=== PATIENT | female | born 1995 | race Caucasian/White ===

== ENCOUNTER 2017-09-04 22:17 | Emergency (ER) | payer OTHER ==
[2017-09-04 22:26] VITALS: TEMP 98.4
[2017-09-04] MEDS ORDERED: PROMETHAZINE HCL 25 MG TAB PO ONE (22:54)
[2017-09-04] MEDS ORDERED: CEPHALEXIN 500MG PREPACK#4 BTL TAKEHOME ONE (22:55)
[2017-09-04] MEDS ORDERED: SULFAMETHOX/TMP 800/160 MG 1 TAB PO ONE (22:55)
[2017-09-04] MEDS ORDERED: CEPHALEXIN 500 MG CAP PO ONE (22:55)
[2017-09-04] MEDS ORDERED: SULFAMET/TMP DS PREPACK#2 BTL TAKEHOME ONE (22:55)
--- NOTE | 2017-09-04 23:01 | EDPHY ---
H & P Stated Complaint: nauea lethargic aches ? w/d from suboxone Time Seen by Provider: 09/04/17 22:29 HPI/ROS: HPI The patient presents with generalized malaise, nausea, facial rash which have been present for the last 2 days and getting progressively worse. The patient has been on Suboxone for the last 1 month after going into detox for heroin use. She took her last pill yesterday morning and feels like she may be in withdrawals. She feels generally unwell and nauseous. She also notices a rash on her left cheek which has been present for about 2 days which was draining previously, however now is painful only. She also feels some lymph nodes in her left neck. She is not having any fevers or chills. She is diabetic and has been taking her insulin lately, she reports mild hyperglycemia. REVIEW OF SYSTEMS Constitutional: No fever, no chills. Eyes: No discharge. ENT: No sore throat. Cardiovascular: No chest pain, no palpitations. Respiratory: No cough, no shortness of breath. Gastrointestinal: No abdominal pain, no vomiting. Genitourinary: No hematuria. Musculoskeletal: No back pain. Skin: No rashes. Neurological: No headache. PMHx: Type 1 diabetic on insulin Soc Hx: Recently relocated to [place] after living in a drug house in [place], recently quit heroin and has been on Suboxone PHYSICAL General Appearance: Alert, no distress Head: Left cheek with erythematous confluent rash with central area of flaking of skin Eyes: Pupils equal and round no pallor or injection ENT, Mouth: Mucous membranes moist Respiratory: There are no retractions, lungs are clear to auscultation Cardiovascular: Regular rate and rhythm Gastrointestinal: Abdomen is soft and non-tender, no masses, bowel sounds normal Neurological: A&O, moves all extremities Skin: Warm and dry, no rashes Musculoskeletal: Neck is supple non tender Extremities: symmetrical, full range of motion Psychiatric: Patient is oriented X 3, there is no agitation Source: Patient Exam Limitations: No limitations - Personal History LMP (Females 10-55): Extended Cycle BCP/Inj Current Tetanus/Diphtheria Vaccine: Yes Current Tetanus Diphtheria and Acellular Pertussis (TDAP): Yes - Medical/Surgical History Hx Asthma: No Hx Chronic Respiratory Disease: No Hx Diabetes: Yes Hx Cardiac Disease: No Hx Renal Disease: No Hx Cirrhosis: No Hx Alcoholism: No Hx HIV/AIDS: No Hx Splenectomy or Spleen Trauma: No Other PMH: heroin abuse - Social History Smoking Status: Current every day smoker Constitutional: Initial Vital Signs Temperature (C) 36.9 C 09/04/17 22:21 Heart Rate 120 H 09/04/17 22:21 Respiratory Rate 18 09/04/17 22:21 Blood Pressure 101/68 09/04/17 22:21 O2 Sat (%) 97 09/04/17 22:21 O2 Delivery Mode Room Air Allergies/Adverse Reactions: amoxicillin Allergy (Verified 09/04/17 22:19) Home Medications: Medication Instructions Recorded Cephalexin [Keflex (*)] 500 mg PO Q6H #28 cap 09/04/17 GABAPENTIN 09/04/17 Humalog 09/04/17 Insulin Lantus 09/04/17 Subxone 09/04/17 Sulfamethox/Tmp 800/160 mg 1 tab PO BID #14 tab 09/04/17 [Bactrim Ds] Vistaril 09/04/17 traZODone 09/04/17 Medical Decision Making Differential Diagnosis: 22-year-old female who presents with 1 day of malaise, nausea, facial rash in the setting of running out of her Suboxone prescription 1 day ago. Differential diagnosis includes cellulitis, abscess, Suboxone withdrawal, sepsis , viral illness. In the emergency department, patient was given Keflex and Bactrim for presumed facial cellulitis, could be related to MRSA given her prior history. Given that we are not able to refill Suboxone from the emergency department, I treated her for her withdrawal with clonidine and Phenergan. I-STAT was drawn to check blood glucose and for anion gap. Glucose was quite elevated in the 600s. Because of this IV line was placed and the patient was given a bolus of normal saline. She used her normal nighttime Lantus and we also gave her regular insulin IV. Repeat blood glucose was in the 300s. She did not have any symptoms of hyperglycemia, nor did she have an anion gap. No leukocytosis was present, I do not feel she is septic from her cellulitis. She felt well enough to go home and was discharged with antibiotics for her cellulitis. I have put in a referral for case management for her so that she can get help finding a place to refill her Suboxone. - Data Points Laboratory Results: Laboratory Results 09/04/17 23:59 09/04/17 23:45 09/05/17 09/04/17 09/04/17 01:21 23:59 23:45 WBC 10.01 10^3/uL H 10^3/uL (3.80-9.50) RBC 4.47 10^6/uL 10^6/uL (4.18-5.33) Hgb 13.4 g/dL g/dL (12.6-16.3) POC Hgb 13.6 gm/dL gm/dL (12.6-16.3) Hct 38.4 % % (38.0-47.0) POC Hct 40 % % (38-47) MCV 85.9 fL fL (81.5-99.8) MCH 30.0 pg pg (27.9-34.1) MCHC 34.9 g/dL g/dL (32.4-36.7) RDW 12.1 % % (11.5-15.2) Plt Count 308 10^3/uL 10^3/uL (150-400) MPV 9.9 fL fL (8.7-11.7) Neut % (Auto) 73.4 % % (39.3-74.2) Lymph % (Auto) 19.9 % % (15.0-45.0) [place] % (Auto) 5.1 % % (4.5-13.0) Eos % (Auto) 0.8 % % (0.6-7.6) Baso % (Auto) 0.5 % % (0.3-1.7) Nucleat RBC Rel Count 0.0 % % (0.0-0.2) Absolute Neuts (auto) 7.35 10^3/uL H 10^3/uL (1.70-6.50) Absolute Lymphs (auto) 1.99 10^3/uL 10^3/uL (1.00-3.00) Absolute Monos (auto) 0.51 10^3/uL 10^3/uL (0.30-0.80) Absolute Eos (auto) 0.08 10^3/uL 10^3/uL (0.03-0.40) Absolute Basos (auto) 0.05 10^3/uL 10^3/uL (0.02-0.10) Absolute Nucleated RBC 0.00 10^3/uL 10^3/uL (0-0.01) Immature Gran % 0.3 % % (0.0-1.1) Immature Gran # 0.03 10^3/uL 10^3/uL (0.00-0.10) POC Sodium 139 mEq/L mEq/L (134-144) Sodium 131 mEq/L L mEq/L (134-144) POC Potassium 3.7 mEq/L mEq/L (3.3-5.0) Potassium 4.9 mEq/L mEq/L (3.5-5.2) POC Chloride 98 mEq/L mEq/L (97-110) Chloride 94 mEq/L L mEq/L (97-110) Carbon Dioxide 25 mEq/l mEq/l (22-31) Anion Gap 12 mEq/L mEq/L (8-16) POC BUN 10 mg/dL mg/dL (7-23) BUN 11 mg/dL mg/dL (7-23) Creatinine 0.7 mg/dL mg/dL (0.6-1.0) POC Creatinine 0.6 mg/dL mg/dL (0.6-1.0) Estimated GFR > 60 Glucose 599 mg/dL H* mg/dL (70-100) POC Glucose 399 mg/dL H mg/dL (70-100) Calcium 9.2 mg/dL mg/dL (8.5-10.4) Total Bilirubin 0.7 mg/dL mg/dL (0.1-1.4) AST 21 IU/L IU/L (14-46) ALT 38 IU/L IU/L (9-52) Alkaline Phosphatase 128 IU/L H IU/L (38-126) Total Protein 5.7 g/dL L g/dL (6.3-8.2) Albumin 3.2 g/dL L g/dL (3.5-5.0) Urine Color Urine Appearance Urine pH Ur Specific [place] Urine Protein Urine Ketones Urine Blood Urine Nitrate Urine Bilirubin Urine Urobilinogen Ur Leukocyte Esterase Urine RBC Urine WBC Ur Epithelial Cells Urine Glucose 09/04/17 09/04/17 23:39 23:00 WBC RBC Hgb POC Hgb 16.0 gm/dL gm/dL (12.6-16.3) Hct POC Hct 47 % % (38-47) MCV MCH MCHC RDW Plt Count MPV Neut % (Auto) Lymph % (Auto) [place] % (Auto) Eos % (Auto) Baso % (Auto) Nucleat RBC Rel Count Absolute Neuts (auto) Absolute Lymphs (auto) Absolute Monos (auto) Absolute Eos (auto) Absolute Basos (auto) Absolute Nucleated RBC Immature Gran % Immature Gran # POC Sodium 132 mEq/L L mEq/L (134-144) Sodium POC Potassium 4.7 mEq/L mEq/L (3.3-5.0) Potassium POC Chloride 93 mEq/L L mEq/L (97-110) Chloride Carbon Dioxide Anion Gap POC BUN 9 mg/dL mg/dL (7-23) BUN Creatinine POC Creatinine 0.7 mg/dL mg/dL (0.6-1.0) Estimated GFR Glucose POC Glucose 627 mg/dL H* mg/dL (70-100) Calcium Total Bilirubin AST ALT Alkaline Phosphatase Total Protein Albumin Urine Color COLORLESS Urine Appearance CLEAR Urine pH 6.0 (5.0-7.5) Ur Specific [place] 1.015 (1.002-1.030) Urine Protein NEGATIVE (NEGATIVE) Urine Ketones TRACE H (NEGATIVE) Urine Blood NEGATIVE (NEGATIVE) Urine Nitrate NEGATIVE (NEGATIVE) Urine Bilirubin NEGATIVE (NEGATIVE) Urine Urobilinogen NEGATIVE EU EU (0.2-1.0) Ur Leukocyte Esterase NEGATIVE (NEGATIVE) Urine RBC 1-3 /hpf /hpf (0-3) Urine WBC NONE SEEN /hpf /hpf (0-3) Ur Epithelial Cells TRACE /lpf /lpf (NONE-1+) Urine Glucose 3+ H (NEGATIVE) Medications Given: Discontinued Medications Cephalexin (Keflex 500 Mg Prepack#4) 1 btl TAKEHOME EDNOW ONE PRN Reason: Protocol Stop: 09/04/17 22:56 Last Admin: 09/04/17 23:08 Dose: 1 btl Cephalexin HCl (Keflex) 500 mg PO EDNOW ONE PRN Reason: Protocol Stop: 09/04/17 22:56 Last Admin: 09/04/17 23:06 Dose: 500 mg Clonidine (Catapres) 0.2 mg PO EDNOW ONE Stop: 09/04/17 22:55 Last Admin: 09/04/17 23:07 Dose: 0.2 mg Sodium Chloride (Ns) 1,000 mls @ 0 mls/hr IV EDNOW ONE; Wide Open PRN Reason: Protocol Stop: 09/04/17 23:50 Last Admin: 09/05/17 00:09 Dose: 1,000 mls Insulin Human Regular (Humulin R) 12 unit IVP EDNOW ONE Stop: 09/05/17 00:52 Last Admin: 09/05/17 01:04 Dose: 12 units Promethazine HCl (Phenergan) 12.5 mg PO ONCE ONE Stop: 09/04/17 22:55 Last Admin: 09/04/17 23:06 Dose: 12.5 mg Trimethoprim/Sulfamethoxazole (Bactrim Ds Prepack#2) 1 btl TAKEHOME EDNOW ONE Stop: 09/04/17 22:56 Last Admin: 09/04/17 23:09 Dose: 1 btl Trimethoprim/Sulfamethoxazole (Bactrim Ds) 1 ea PO EDNOW ONE PRN Reason: Protocol Stop: 09/04/17 22:56 Last Admin: 09/04/17 23:06 Dose: 1 ea Point of Care Test Results: 09/04/17 09/05/17 23:39 01:21 POC Sodium 132 L 139 POC Potassium 4.7 3.7 POC Chloride 93 L 98 POC BUN 9 10 POC Creatinine 0.7 0.6 POC Glucose 627 H* 399 H Departure - Departure Disposition: Home, Routine, Self-Care Clinical Impression: Withdrawal complaint, Facial cellulitis, Hyperglycemia due to type 1 diabetes mellitus Condition: Good Instructions: Cellulitis (ED), Diabetic Hyperglycemia (ED) Additional Instructions: Please make sure to drink plenty of fluids. [facility] and I have provided there are information for you. Please return to the emergency room if your worse in any way. Referrals: [facility],. [Clinic] - As per Instructions Prescriptions: Cephalexin [Keflex (*)] 500 mg PO Q6H #28 cap Sulfamethox/Tmp 800/160 mg [Bactrim Ds] 1 tab PO BID #14 tab
[2017-09-04] MEDS ORDERED: NS 1,000 ML IV ONE (23:49)
[2017-09-05 00:12] LABS: COLOR COLORLESS; LEUKOCYTE ESTERASE,URINE NEGATIVE (NEGATIVE); NITRITE,URINE NEGATIVE (NEGATIVE)
[2017-09-05 00:13] LABS: % IMMATURE GRANULYOCYTES 0.3 % (0.0-1.1); ABSOLUTE IMMATURE GRANULOCYTES 0.03 10^3/uL (0.00-0.10); ADD DIFF? NO; ADD MORPH? NO; ADD SCAN? NO; ATYPICAL LYMPHOCYTE FLAG 20 (0-99); FRAGMENT RBC FLAG 0 (0-99); HEMATOCRIT 38.4 % (38.0-47.0); HEMOGLOBIN 13.4 g/dL (12.6-16.3); LEFT SHIFT FLG 0 (0-99); LIPEMIA HEMOLYSIS FLAG 90 (0-99); MEAN CELL HEMOGLOBIN CONCENTR. 34.9 g/dL (32.4-36.7); MEAN CELL VOLUME 85.9 fL (81.5-99.8); MEAN PLATELET VOLUME 9.9 fL (8.7-11.7); PLATELET CLUMPS FLAG 10 (0-99); PLATELET COUNT 308 10^3/uL (150-400); RED BLOOD CELL COUNT 4.47 10^6/uL (4.18-5.33); RED CELL DISTRIBUTION WIDTH 12.1 % (11.5-15.2)
[2017-09-05 00:28] LABS: WBC,URINE NONE SEEN /hpf (0-3)
[2017-09-05 00:35] LABS: ALANINE AMINOTRANSFERASE 38 IU/L (9-52); ALBUMIN 3.2 g/dL (3.5-5.0); ALKALINE PHOSPHATASE 128 IU/L (38-126); ANION GAP 12 mEq/L (8-16); ASPARTATE AMINOTRANSFERASE 21 IU/L (14-46); BILIRUBIN,TOTAL 0.7 mg/dL (0.1-1.4); CALCIUM 9.2 mg/dL (8.5-10.4); CARBON DIOXIDE 25 mEq/l (22-31); CHLORIDE 94 mEq/L (97-110); CREATININE 0.7 mg/dL (0.6-1.0); GLOMERULAR FILTRATION RATE > 60; POTASSIUM 4.9 mEq/L (3.5-5.2); SODIUM 131 mEq/L (134-144); TOTAL PROTEIN 5.7 g/dL (6.3-8.2)
[2017-09-05 00:51] LABS: GLUCOSE 599 mg/dL (70-100)
[2017-09-05] MEDS ORDERED: INSULIN REGULAR HUMAN 100 UNIT/ML IVP ONE (00:51)
[2017-09-05 01:09] VITALS: RESP 16
[2017-09-05 02:15] VITALS: BP 118/76; PULSE 94; O2SAT 95
--- NOTE | 2017-09-06 14:17 | ASMTCMCOM ---
CM Note CM Note Notes: Received a message to follow-up with patient to see if CM could further assist patient with any needs. Spoke with patient and she was pleasant, polite and reported "Nevermind, I don't need any help." CM assured patient she could call back if she has any needs that arise. Date Signed: 09/06/2017 02:17 PM Electronically Signed By:Anu Vincent RN
--- NOTE | 2017-09-06 14:20 | ASDISCHSUM ---
Discharge Information Plan Status:Home with No Needs Medically Cleared to Leave:09/05/2017 Discharge Date:09/05/2017 02:15 AM CM D/C Disposition:Home, Routine, Self-Care ADT D/C Disposition:Home, Routine, Self-Care Projected Discharge Date:09/05/2017 02:00 AM Transportation at D/C: Discharge Delay Reason: Follow-Up Date:09/05/2017 02:00 AM Discharge Slot: Final Diagnosis: Placement Information Patient Contact Information Contact Name:MARIMAR Relationship:Friend Address: Work Phone: City: [facility] Phone: State/[place] Code: Email: Financial Information Financial Class:[facility] Primary Plan Desc:[facility] Primary Plan Number:[id number] Secondary Plan Desc: Secondary Plan Number: Assessment Information [facility] CM Progress Note CM Note CM Note Notes: Received a message to follow-up with patient to see if CM could further assist patient with any needs. Spoke with patient and she was pleasant, polite and reported "Nevermind, I don't need any help." CM assured patient she could call back if she has any needs that arise. Date Signed: 09/06/2017 02:17 PM Electronically Signed By:Anu Vincent RN LACE MANDY Emergency dept visits in Answers: 1 last 6 months Score: 1 Date Signed: 09/06/2017 02:18 PM Electronically Signed By:Anu Vincent RN Intervention Information
== END 2017-09-05 02:15 | disposition home or self-care (01) ==
DX: L03.211 Cellulitis of face (principal); E10.65 Type 1 diabetes mellitus with hyperglycemia; F11.93 Opioid use, unspecified with withdrawal; F17.200 Nicotine dependence, unspecified, uncomplicated; E86.9 Volume depletion, unspecified
CPT/HCPCS: 82947-QW; 96374; J1815

== ENCOUNTER 2017-10-17 14:07 | Inpatient (IN) | payer OTHER ==
[2017-10-17] MEDS ORDERED: ONDANSETRON 4 MG/2 ML VIAL IVP ONE ×2 (16:35→17:51)
[2017-10-17] MEDS ORDERED: MAG HYDROX/AL HYDROX/SIMETH 30 ML UDCUP PO ONE (16:38)
[2017-10-17] MEDS ORDERED: LIDOCAINE 2% VISCOUS 15 ML UDCUP PO ONE (16:38)
[2017-10-17] MEDS ORDERED: HYOSCYAMINE SULFATE 0.125 MG TAB PO ONE (16:38)
--- NOTE | 2017-10-17 16:44 | EDPHY ---
HPI/HX/ROS/PE/MDM Narrative: CHIEF COMPLAINT: Chest pain HPI: This patient is a 22 year old female with history of insulin-dependent diabetes and pancreatitis complaining of chest pain onset this morning around 10am. She woke at 9am feeling nauseous and vomited but was able to return to sleep following this. She woke again at 10:00 and vomited, and her chest pain began immediately following this. She states the pain is in her upper chest, slightly towards the left, and feels "like I got hit in the chest with something, and it' s tight". She feels frightened by this sensation. No relief with deep inspiration. She denies having similar symptoms in the past, including the pain associated with her prior episodes of pancreatitis. She checked her blood sugar this morning, and reports it was high. She denies illicit drug use or recent trauma. No fever, diarrhea, shortness of breath, urinary complaints, or other associated symptoms. REVIEW OF SYSTEMS: Aside from elements discussed in the HPI, a comprehensive 10-point review of systems was reviewed and is negative. PMH: Diabetes mellitus type I. Pancreatitis. SOCIAL HISTORY: No current illicit drug use. History of heroin abuse. Lives in [place]. PHYSICAL EXAM: General:Patient is alert, tearful, anxious. Clear emesis in basin. ENT:Eyes are normal to inspection. ENT inspection normal. Neck: Normal inspection. Full range of motion. Respiratory:No respiratory distress. Breath sounds normal bilaterally. Cardiovascular: Regular rate and rhythm. Strong peripheral pulses. Normal cap refill. Abdomen:The abdomen is nontender to palpation. There are no peritoneal signs. There are normal bowel sounds. Back: Normal to inspection. No tenderness to palpation. Skin: Normal color. No rash. Warm and dry. Extremities: Normal appearance. Full range of motion. Neuro: Oriented x3. Normal motor function. Normal sensory function. ED Course: 22 year old female with history of type I diabetes mellitus and pancreatitis presents with chest pain, nausea, and vomiting onset this morning. IV established. Plan to administer 4mg IV Zofran, GI cocktail for symptom relief. Plan for EKG, chest x-ray, labs including CBC, BMP, Troponin, Lipase, tox screen. 18:14 Laboratory results reviewed. Patient's BGL is critically high at 715. Plan to admit for diabetic ketoacidosis. Plan for additional laboratory studies including UA, phosphorus, magnesium, B-hydroxybutyrate. Plan to administer insulin per protocol, 1L IV NS. Given her complaint of burning chest pain, I considered Boerhaave's and/or aspiration, but CXR is negative, making this unlikely. 18:[address] Simmons, hospitalist. She accepts admission to ICU for DKA. Critical care time spent by me, Dr. Quarles, exclusively with this patient was 45 minutes, exclusive of PA time and exclusive of procedures. The organ systems at risk were endocrine, cardiovascular, and I gave IVF, insulin, antiemetics, completed and reviewed additional laboratory studies, and admitted the patient to the ICU to prevent worsening of the patients condition. - Data Points Laboratory Results: Laboratory Results 10/17/17 16:53 10/17/17 16:53 10/17/17 10/17/17 10/17/17 16:53 16:53 16:53 WBC 18.57 10^3/uL H 10^3/uL (3.80-9.50) RBC 4.86 10^6/uL 10^6/uL (4.18-5.33) Hgb 14.7 g/dL g/dL (12.6-16.3) Hct 44.2 % % (38.0-47.0) MCV 90.9 fL fL (81.5-99.8) MCH 30.2 pg pg (27.9-34.1) MCHC 33.3 g/dL g/dL (32.4-36.7) RDW 13.2 % % (11.5-15.2) Plt Count 459 10^3/uL H 10^3/uL (150-400) MPV 10.3 fL fL (8.7-11.7) Neut % (Auto) Not Reported Lymph % (Auto) Not Reported [place] % (Auto) Not Reported Eos % (Auto) Not Reported Baso % (Auto) Not Reported Nucleat RBC Rel Count 0.0 % % (0.0-0.2) Absolute Neuts (auto) Not Reported Absolute Lymphs (auto) Not Reported Absolute Monos (auto) Not Reported Absolute Eos (auto) Not Reported Absolute Basos (auto) Not Reported Absolute Nucleated RBC 0.00 10^3/uL 10^3/uL (0-0.01) Immature Gran % Not Reported Seg Neutrophils % 66 % % Band Neutrophils % 19 % % Lymphocytes % 11 % % Monocytes % 3 % % Basophils % 1 % % Immature Gran # Not Reported Absolute Seg Neuts 12.26 10^/uL H 10^/uL (1.70-6.50) Absolute Band Neuts 3.53 10^3/uL H 10^3/uL (0.00-0.70) Absolute Lymphocytes 2.04 10^3/uL 10^3/uL (1.00-3.00) Absolute Monocytes 0.56 10^3/uL 10^3/uL (0.30-0.80) Absolute Basophils 0.19 10^3/uL H 10^3/uL (0.02-0.10) RBC/WBC/PLT Morphology NORMAL (NORMAL) Platelet Estimate ADEQUATE (ADEQ) Sodium 138 mEq/L mEq/L (134-144) Potassium 4.8 mEq/L mEq/L (3.5-5.2) Chloride 95 mEq/L L mEq/L (97-110) Carbon Dioxide 9 mEq/l L* mEq/l (22-31) Anion Gap 34 mEq/L H mEq/L (8-16) BUN 19 mg/dL mg/dL (7-23) Creatinine 0.9 mg/dL mg/dL (0.6-1.0) Estimated GFR > 60 Glucose 715 mg/dL H* mg/dL (70-100) Calcium 10.2 mg/dL mg/dL (8.5-10.4) Phosphorus 5.3 mg/dL H mg/dL (2.5-4.5) Magnesium 2.0 mg/dL mg/dL (1.6-2.3) Troponin I < 0.012 ng/mL ng/mL (0.000-0.034) Lipase 20 IU/L L IU/L (23-300) Beta-Hydroxybutyrate Pending Medications Given: Discontinued Medications Hyoscyamine Sulfate (Levsin, Hyomax-Sl) 0.25 mg PO ONCE ONE Stop: 10/17/17 16:39 Last Admin: 10/17/17 17:20 Dose: 0.25 mg Sodium Chloride (Ns) 1,000 mls @ 0 mls/hr IV EDNOW ONE; Wide Open PRN Reason: Protocol Stop: 10/17/17 17:52 Last Admin: 10/17/17 17:57 Dose: 1,000 mls Ondansetron HCl (Zofran) 4 mg IVP EDNOW ONE Stop: 10/17/17 16:36 Last Admin: 10/17/17 16:52 Dose: 4 mg Ondansetron HCl (Zofran) 4 mg IVP EDNOW ONE Stop: 10/17/17 17:52 Last Admin: 10/17/17 17:58 Dose: 4 mg General Time Seen by Provider: 10/17/17 16:32 Initial Vital Signs: Initial Vital Signs Temperature (C) 36.4 C 10/17/17 14:15 Heart Rate 122 H 10/17/17 14:15 Respiratory Rate 20 10/17/17 14:15 Blood Pressure 101/81 H 10/17/17 14:15 O2 Sat (%) 98 10/17/17 14:15 O2 Delivery Mode Room Air Allergies/Adverse Reactions: amoxicillin Allergy (Severe, Verified 10/17/17 21:32) Hives Home Medications: Medication Instructions Recorded Buprenorphine HCl/Naloxone HCl 1 tab SL BID 10/17/17 [Suboxone 8 mg-2 mg Tablet] Gabapentin [Neurontin 100 MG (*)] 100 mg PO TID 10/17/17 Insulin Glargine [Lantus 100 30 - 35 units SC HS 10/17/17 UNITS/ML (*)] Insulin Lispro [humALOG LISPRO 100 0 unit SC TIDMEAL 10/17/17 units/ml (*)] Sertraline HCl [Zoloft 25mg (*)] 25 mg PO HS 10/17/17 hydrOXYzine HCL [Vistaril] 50 mg PO BID PRN 10/17/17 traZODone [traZODONE 50MG (*)] 50 - 100 mg PO HS PRN 10/17/17 Departure - Departure Disposition: [facility] Clinical Impression: DKA (diabetic ketoacidoses) Qualifiers: Diabetes mellitus type: type 1 Diabetes mellitus complication detail: without coma Qualified Code(s): E10.10 - Type 1 diabetes mellitus with ketoacidosis without coma Condition: Serious Report Scribed for: Roderick Quarles Report Scribed by: Celeste Lam Date of Report: 10/17/17 Time of Report: 17:24 Physician Review and Approval Statement: Portions of this note were transcribed by an ED scribe. I personally performed the history, physical exam, and medical decision making; and confirm the accuracy of the information in the transcribed note.
[2017-10-17 17:31] LABS: ADD DIFF? YES; ADD MORPH? NO; ADD SCAN? NO; ATYPICAL LYMPHOCYTE FLAG 0 (0-99); CALCIUM 10.2 mg/dL (8.5-10.4); CHLORIDE 95 mEq/L (97-110); CREATININE 0.9 mg/dL (0.6-1.0); FRAGMENT RBC FLAG 10 (0-99); GLOMERULAR FILTRATION RATE > 60; HEMATOCRIT 44.2 % (38.0-47.0); HEMOGLOBIN 14.7 g/dL (12.6-16.3); LEFT SHIFT FLG 30 (0-99); LIPEMIA HEMOLYSIS FLAG 80 (0-99); MEAN CELL HEMOGLOBIN 30.2 pg (27.9-34.1); MEAN CELL HEMOGLOBIN CONCENTR. 33.3 g/dL (32.4-36.7); MEAN CELL VOLUME 90.9 fL (81.5-99.8); MEAN PLATELET VOLUME 10.3 fL (8.7-11.7); PLATELET CLUMPS FLAG 0 (0-99); PLATELET COUNT 459 10^3/uL (150-400); POTASSIUM 4.8 mEq/L (3.5-5.2); RED BLOOD CELL COUNT 4.86 10^6/uL (4.18-5.33); RED CELL DISTRIBUTION WIDTH 13.2 % (11.5-15.2); SODIUM 138 mEq/L (134-144)
[2017-10-17 17:43] LABS: TROPONIN I < 0.012 ng/mL (0.000-0.034)
[2017-10-17] MEDS ORDERED: NS 1,000 ML IV ONE ×3 (17:51→20:06)
[2017-10-17] MEDS ORDERED: ONDANSETRON 4 MG/2 ML VIAL ONE (17:52)
[2017-10-17 18:07] LABS: PLATELET ESTIMATE ADEQUATE (ADEQ)
[2017-10-17 18:12] LABS: ANION GAP 34 mEq/L (8-16)
[2017-10-17 18:13] LABS: CARBON DIOXIDE 9 mEq/l (22-31); GLUCOSE 715 mg/dL (70-100)
[2017-10-17] MEDS ORDERED: INSULIN REGULAR HUMAN 100 UNIT/ML IVP ONE (18:13)
[2017-10-17] MEDS ORDERED: INSULIN REGULAR HUMAN 100 UNIT, COSIGN. REQUIRED 1 EA in NS 100 ML IV ONE (18:13)
[2017-10-17] MEDS ORDERED: ONDANSETRON DISINTEGRATING 4 MG TAB PO PRN (18:31)
[2017-10-17] MEDS ORDERED: ONDANSETRON 4 MG/2 ML VIAL IVP PRN (18:31)
[2017-10-17 19:22] LABS: COLOR PALE YELLOW; LEUKOCYTE ESTERASE,URINE NEGATIVE (NEGATIVE); NITRITE,URINE NEGATIVE (NEGATIVE)
[2017-10-17 19:32] LABS: MUCUS TRACE /lpf (NONE-1+)
[2017-10-17 19:34] LABS: WBC,URINE NONE SEEN /hpf (0-3)
--- NOTE | 2017-10-17 19:55 | CPEKG ---
Heart Rate: 125 RR Interval: 480 P-R Interval: 136 QRSD Interval: 92 QT Interval: 332 QTC Interval: 479 P [place]: 72 QRS [place]: 90 T Wave [place]: -8 EKG Severity - BORDERLINE ECG - EKG Impression: SINUS TACHYCARDIA EKG Impression: BORDERLINE RIGHT AXIS DEVIATION EKG Impression: BORDERLINE PROLONGED QT INTERVAL Electronically Signed By: Roderick Quarles 17-Oct-2017 21:51:42
[2017-10-17] MEDS ORDERED: PROMETHAZINE HCL 25 MG/ML INJ IVP PRN (20:25)
[2017-10-17] MEDS ORDERED: PROTOCOL POTASSIUM 1 DOSE MISC PRN (20:36)
[2017-10-17] MEDS ORDERED: PROTOCOL MAGNESIUM 1 DOSE IV PRN (20:36)
[2017-10-17] MEDS ORDERED: CALCIUM CARBONATE 500 MG CHEWABLE TAB PO PRN (20:51)
[2017-10-17 20:54] LABS: B-HYDROXYBUTYRATE 8.59 mmol/L (0.02-0.27)
[2017-10-17 21:06] LABS: ALANINE AMINOTRANSFERASE 67 IU/L (9-52); ALBUMIN 3.6 g/dL (3.5-5.0); ALKALINE PHOSPHATASE 115 IU/L (38-126); ASPARTATE AMINOTRANSFERASE 54 IU/L (14-46); BILIRUBIN,TOTAL 0.5 mg/dL (0.1-1.4); BILIRUBIN-CONJUGATED 0.4 mg/dL (0.0-0.5); BILIRUBIN-UNCONJUGATED 0.1 mg/dL (0.0-1.1); POTASSIUM 5.1 mEq/L (3.5-5.2); TOTAL PROTEIN 5.9 g/dL (6.3-8.2)
[2017-10-17 21:31] LABS: PHENCYCLIDINE URINE BCH < 6 ng/ml (NEGATIVE); PHENCYCLIDINE URINE BCH NEGATIVE (NEGATIVE); TETRAHYDROCANNABINOL URINE < 5 ng/mL (NEGATIVE); TETRAHYDROCANNABINOL URINE NEGATIVE (NEGATIVE)
--- NOTE | 2017-10-17 21:34 | GHP ---
[f rep st] HISTORY AND PHYSICAL DATE OF ADMISSION: 10/17/2017 CHIEF COMPLAINT: Diabetic ketoacidosis. HISTORY OF PRESENT ILLNESS: A 22-year-old female with type 1 diabetes, history of pancreatitis, and heroin abuse, complaining of chest pain this morning after vomiting. She woke up at 9:00 a.m. feeling nauseated and vomited and was able to fall asleep. She then awoke again at 10 and felt a sharp chest pain substernally, slightly toward the left. It felt like she got hit with something and felt tight. She was very frightened. She did not have associated numbness or tingling, diaphoresis, or shortness of breath. She denies fevers, chills, or sweats. No cough. No myalgias or headache. She has not been taking her short-acting Humalog as consistently as she should. She denies recent drug use. She was in detoxification and was prescribed Suboxone approximately 2 months ago , but she self-weaned herself off and had severe withdrawal from it. REVIEW OF SYSTEMS: I completed a 10-point review of systems and negative except as noted in HPI. PAST MEDICAL HISTORY: Type 1 diabetes, pancreatitis, and history of polysubstance abuse. SOCIAL HISTORY: She lives in [place] with a roommate. No alcohol. Last used heroin 2 months ago. THC a month ago. PAST SURGICAL HISTORY: None. FAMILY HISTORY: Noncontributory. HOME MEDICATIONS: 1. Lantus 30-35 units qhs 2. Humalog, which she has not been compliant with. 3. Trazodone. 4. Suboxone. She self-weaned off 30 days ago. 5. Gabapentin. ALLERGIES: Amoxicillin. PHYSICAL EXAMINATION: VITAL SIGNS: Temperature 36.8, blood pressure 88/48, heart rate 120s, respirations 20, and 98% on room air. GENERAL: Lying in bed in no acute distress, anxious. HEENT: PERRLA. Dry mucous membranes. CARDIOVASCULAR: Tachycardiac, regular. No murmurs, gallops, rubs. LUNGS: Clear to auscultation. No crackles or wheezing. ABDOMEN: Soft, nontender, nondistended. Positive bowel sounds. : No suprapubic tenderness. MUSCULOSKELETAL: 5/5 upper and lower extremity strength. SKIN: Warm and dry. Some excoriations over the lower extremities. Annular lesion on her upper left thigh. NEUROLOGIC: 2-12 intact. PSYCHIATRIC: Pressured speech. Alert and oriented x3. LABORATORY DATA: Sodium 138, potassium 4.8, chloride 95, carbon dioxide 9, anion gap 34, creatinine 0.9, glucose 715, calcium 10.2. Troponin is less than 0.012. Lipase is 20. Alkaline phosphatase 5.3. Magnesium is 2. Repeat glucose is pending. Urine +3 glucose, 5-10 WBCs. Urine toxicology is pending. WBCs 18, hemoglobin 14, hematocrit 44, platelets 459. Chest x-ray personally reviewed by me showed no evidence of pneumonia. EKG personally reviewed by me showed sinus tachycardia. ASSESSMENT AND PLAN: 1. Diabetic ketoacidosis: secondary to insulin noncompliance. Afebrile without evidence of infection. U/A is negative, as well as x-ray. She denies other infectious symptoms. Monitor in the ICU on insulin drip and aggressive intravenous fluid resuscitation and serial laboratories. 2. Leukocytosis: Most likely stress inflammation, given the diabetic ketoacidosis. Again afebrile. Denies infectious symptoms. U/A and x-ray negative. 3. Metabolic anion gap acidosis: Secondary to diabetic ketoacidosis. We will monitor closely. Aggressive intravenous fluids and insulin drip. 4. H/o polysubstance abuse: + cocaine here. Was in detox in 2 months ago for heroin; took off Suboxone 30 days ago. Case Management evaluation to help with treatment options. 5. History of pancreatitis: No abdominal pain now. Lipase is normal. No opioids. PRN Toradol or APAP. 6. Nausea and vomiting: due to DKA; p.r.n. intravenous antiemetics. 7. Chest pain: due to cocaine. Negative trop/EKG 8. Diet: N.p.o. for now. 9. Deep venous thrombosis prophylaxis: Low risk. DISPOSITION: The patient warrants observation and admission, given acute DKA warranting insulin drip, intravenous fluids, and ICU monitoring. Critical care time spent: 40 min reviewing records, bedside with patient and coordinating care. /[id number]/MODL MTDD
[2017-10-17] MEDS: D5W 1,000 ML IV SCH (22:00)
[2017-10-17] MEDS: KETOROLAC 15 MG/1 ML SDV IVP SCH ×2 (22:13→23:58)
[2017-10-17] MEDS: ACETAMINOPHEN 325 MG TAB PO PRN (22:14)
[2017-10-17] MEDS ORDERED: INSULIN REGULAR HUMAN 100 UNIT/ML IVP PRN (22:58)
[2017-10-17] MEDS ORDERED: D50W 25 GM/50 ML SYR IVP PRN (22:58)
[2017-10-17] MEDS ORDERED: INSULIN REGULAR HUMAN 100 UNIT in NS 100 ML IV SCH (23:00)
[2017-10-17 23:02] LABS: MAGNESIUM 1.9 mg/dL (1.6-2.3)
[2017-10-17 23:28] LABS: ANION GAP 23 mEq/L (8-16); CHLORIDE 104 mEq/L (97-110); CREATININE 0.8 mg/dL (0.6-1.0); GLOMERULAR FILTRATION RATE > 60; GLUCOSE 430 mg/dL (70-100); MAGNESIUM 1.8 mg/dL (1.6-2.3); POTASSIUM 4.9 mEq/L (3.5-5.2); SODIUM 133 mEq/L (134-144)
[2017-10-17 23:31] LABS: CARBON DIOXIDE 6 mEq/l (22-31)
[2017-10-17] MEDS ORDERED: MAGNESIUM SULF 1 GM/DEXTROSE 100 ML IV ONE (23:34)
[2017-10-17] MEDS ORDERED: MAGNESIUM SULF 1 GM/DEXTROSE 100 ML BAG IV ONE (23:51)
[2017-10-17] MEDS: INSULIN REGULAR HUMAN 100 UNIT in NS 100 ML IV SCH (23:58)
[2017-10-18] MEDS ORDERED: LORazepam 2 MG/ML INJ IVP ONE (00:33)
[2017-10-18 01:21] LABS: CALCULATED OXYGEN SATURATION 78 % (92-95); O2 CONCENTRATIION 21 % (0-100)
[2017-10-18] MEDS ORDERED: SODIUM BICARBONATE 50 MEQ/50 ML SYR ONE (01:21)
[2017-10-18] MEDS: INSULIN REGULAR HUMAN 100 UNIT in NS 100 ML IV SCH ×2 (03:06→05:45)
[2017-10-18] MEDS: POTASSIUM Cl (KCl) 100 ML IV SCH ×2 (03:16→03:56)
[2017-10-18 03:55] LABS: ANION GAP 25 mEq/L (8-16); CALCIUM 7.8 mg/dL (8.5-10.4); CHLORIDE 111 mEq/L (97-110); CREATININE 0.8 mg/dL (0.6-1.0); GLOMERULAR FILTRATION RATE > 60; GLUCOSE 314 mg/dL (70-100); POTASSIUM 3.6 mEq/L (3.5-5.2); SODIUM 143 mEq/L (134-144)
[2017-10-18 04:00] LABS: CARBON DIOXIDE 7 mEq/l (22-31)
[2017-10-18] MEDS: KETOROLAC 15 MG/1 ML SDV IVP SCH ×3 (05:45→17:17)
[2017-10-18 06:07] LABS: HEMATOCRIT 29.6 % (38.0-47.0); HEMOGLOBIN 9.9 g/dL (12.6-16.3); MEAN CELL HEMOGLOBIN 30.3 pg (27.9-34.1); MEAN CELL HEMOGLOBIN CONCENTR. 33.4 g/dL (32.4-36.7); MEAN CELL VOLUME 90.5 fL (81.5-99.8); RED BLOOD CELL COUNT 3.27 10^6/uL (4.18-5.33); RED CELL DISTRIBUTION WIDTH 13.5 % (11.5-15.2)
[2017-10-18 06:22] LABS: ANION GAP 13 mEq/L (8-16); CARBON DIOXIDE 16 mEq/l (22-31); CHLORIDE 111 mEq/L (97-110); CREATININE 0.7 mg/dL (0.6-1.0); GLOMERULAR FILTRATION RATE > 60; GLUCOSE 168 mg/dL (70-100); POTASSIUM 4.1 mEq/L (3.5-5.2); SODIUM 140 mEq/L (134-144)
[2017-10-18] MEDS: D5W 1,000 ML IV SCH (08:07)
--- NOTE | 2017-10-18 09:52 | ASMTCMCOM ---
CM Note CM Note Notes: 22 year old female admitted for N/V, DKA, CP. She has a hx of DM-1, Pancreatitis, Polysubstance use: cocaine, THC, heroin-self weaned off Suboxone 30 days ago. CM to visit patient for drug tx options. Date Signed: 10/18/2017 09:52 AM Electronically Signed By:Misti Sykes LCSW
[2017-10-18 10:51] LABS: ALANINE AMINOTRANSFERASE 47 IU/L (9-52); ALKALINE PHOSPHATASE 49 IU/L (38-126); ANION GAP 6 mEq/L (8-16); ASPARTATE AMINOTRANSFERASE 33 IU/L (14-46); BILIRUBIN,TOTAL 0.4 mg/dL (0.1-1.4); CALCIUM 7.9 mg/dL (8.5-10.4); CARBON DIOXIDE 17 mEq/l (22-31); CHLORIDE 114 mEq/L (97-110); CREATININE 0.6 mg/dL (0.6-1.0); GLOMERULAR FILTRATION RATE > 60; GLUCOSE 86 mg/dL (70-100); POTASSIUM 3.8 mEq/L (3.5-5.2); SODIUM 137 mEq/L (134-144); TOTAL PROTEIN 4.5 g/dL (6.3-8.2)
[2017-10-18 11:02] LABS: ALBUMIN 2.4 g/dL (3.5-5.0)
[2017-10-18] MEDS: INSULIN GLARGINE 100 UNITS/ML SYRINGE SC SCH (12:44)
[2017-10-18] MEDS ORDERED: hydrOXYzine HCL 50 MG TAB PO PRN (14:31)
[2017-10-18] MEDS ORDERED: D50W 25 GM/50 ML SYR IVP PRN (14:32)
--- NOTE | 2017-10-18 14:36 | HOSPPROG ---
Hospitalist Progress Note Assessment/Plan: * DKA * gap closed. acidosis is hyperchloremic * start lantus and ssi * still pretty somnolent so will keep another night *Somnolence * could be coming down from cocaine * was really agitated after friends came last night then got a dose of ativan and has been sleeping since *anemia * check iron studies Subjective: pretty somnolent. may have taken some outside drug last night Objective: Vital Signs Temp Pulse Resp BP Pulse Ox 37.3 C 112 H 20 102/41 L 100 10/18/17 07:48 10/18/17 14:00 10/18/17 14:00 10/18/17 14:00 10/18/17 14:00 Laboratory Results 10/18/17 05:50 10/18/17 09:21 10/17/17 10/18/17 10/19/17 05:59 05:59 05:59 Intake Total 8580 Output Total 1550 Balance 7030 - Physical Exam Constitutional: no apparent distress, appears nourished, not in pain Cardiovascular: tachycardia Respiratory: no respiratory distress Skin: warm Neurologic: other (somnolent but answers questions) ICD10 Worksheet Patient Problems: Problems Problem Status Onset DKA (diabetic ketoacidoses) Acute
[2017-10-18 15:53] LABS: % SATURATION 16 % (20-55); TOTAL IRON BINDING CAPACITY 217 ug/dL (260-490)
--- NOTE | 2017-10-18 17:01 | PDMN ---
Medical Necessity Medical necessity: Patient meets INPT criteria per physician note and MCG M-130 Diabetes vs M-595 Substance-Related Disorders - (DKA: BS > 700 on admission, metabolic acidosis/pH 7.15, bicarb 6, 2+ ketonuria on admission; hx of Type 1 DM , pancreatitis and heroin abuse w/inconsistent insulin use; transitioning from IV insulin to lantus and ssi; ongoing somnolence/poss cocaine withdrawal/ ongoing tachycardia post-DKA treatment; LOS will be > 2 midnights for ongoing monitoring of labile BG (D50 earlier for BG of 56) and poss. withdrawal.)
[2017-10-18] MEDS: GABAPENTIN 100 MG CAP PO SCH ×2 (17:18→21:27)
[2017-10-18 17:31] LABS: FERRITIN - BCH 85.6 ng/mL (6.2-264.0)
[2017-10-18] MEDS ORDERED: INSULIN LISPRO 100 UNIT/ML CUSTOM SC SCH (18:00)
[2017-10-18] MEDS ORDERED: INSULIN LISPRO 100 UNIT/ML SC SCH (18:00)
[2017-10-18] MEDS ORDERED: SERTRALINE HCL 25 MG TAB PO SCH (21:00)
[2017-10-18] MEDS: INSULIN LISPRO 100 UNIT/ML SC SCH (21:25)
[2017-10-19] MEDS: KETOROLAC 15 MG/1 ML SDV IVP SCH ×3 (00:11→12:38)
[2017-10-19 04:31] LABS: % IMMATURE GRANULYOCYTES 0.3 % (0.0-1.1); ABSOLUTE IMMATURE GRANULOCYTES 0.03 10^3/uL (0.00-0.10); ADD DIFF? NO; ADD MORPH? NO; ADD SCAN? NO; ATYPICAL LYMPHOCYTE FLAG 0 (0-99); FRAGMENT RBC FLAG 0 (0-99); HEMOGLOBIN 11.8 g/dL (12.6-16.3); LEFT SHIFT FLG 0 (0-99); LIPEMIA HEMOLYSIS FLAG 90 (0-99); MEAN CELL HEMOGLOBIN 30.8 pg (27.9-34.1); MEAN CELL HEMOGLOBIN CONCENTR. 34.7 g/dL (32.4-36.7); MEAN CELL VOLUME 88.8 fL (81.5-99.8); MEAN PLATELET VOLUME 9.5 fL (8.7-11.7); PLATELET CLUMPS FLAG 0 (0-99); PLATELET COUNT 265 10^3/uL (150-400); RED BLOOD CELL COUNT 3.83 10^6/uL (4.18-5.33); RED CELL DISTRIBUTION WIDTH 14.3 % (11.5-15.2)
[2017-10-19] MEDS: ACETAMINOPHEN 325 MG TAB PO PRN (04:37)
[2017-10-19 04:53] LABS: ANION GAP 6 mEq/L (8-16); CALCIUM 8.3 mg/dL (8.5-10.4); CARBON DIOXIDE 23 mEq/l (22-31); CHLORIDE 111 mEq/L (97-110); CREATININE 0.7 mg/dL (0.6-1.0); GLOMERULAR FILTRATION RATE > 60; GLUCOSE 270 mg/dL (70-100); POTASSIUM 4.4 mEq/L (3.5-5.2); SODIUM 140 mEq/L (134-144)
[2017-10-19 08:01] VITALS: TEMP 98.3
[2017-10-19] MEDS: INSULIN LISPRO 100 UNIT/ML SC SCH ×2 (08:22→12:09)
[2017-10-19] MEDS: GABAPENTIN 100 MG CAP PO SCH (08:22)
[2017-10-19 10:23] VITALS: BP 112/82; PULSE 89; RESP 16; O2SAT 98
[2017-10-19] MEDS ORDERED: INSULIN GLARGINE 100 UNITS/ML SYRINGE SC SCH ×2 (11:10)
--- NOTE | 2017-10-19 11:17 | PDDCSUM ---
Discharge Summary Discharge Summary: This is a 22 yo female with a history of type 1 DM who was admitted with DKA. she has a history of polysubstance abuse and she had e/o Cannabis and Cocaine use on admission. She was admitted into the ICU. She was started on IVF and insulin drip. Her acidosis has resolved, AG has resolved. Glucose are better controlled, but overall mildly elevated. Insulin was adjusted. At home she has had poor compliance to include administration of medications as well as f/u. At discharge her sliding scale which includes Humalog and Lantus was reviewed and no changes were made. She was adviced to f/u it closely. She will f/u with her PCP in 1-2 weeks. DDX: #DKA #IDDM #Abd pain, no e/o pancreatitis, much improved #somnolence, resolved PE: VSS NAD AAOX3 MMM RRR CTA B S/NT/ND NO LE EDEMA MEDS: SEE MED REC. GIVEN HER COMPLIANCE, NO ADJUSTMENTS WERE MADE TO HER MED REGIMEN F/U: PER ABOVE TOTAL TIME SPENT ON DISCHARGE IS 35 MINUTES
--- NOTE | 2017-10-19 11:26 | ASMTCMCOM ---
CM Note CM Note Notes: Spoke with Jhony to make patient a f/u appointment with her PCP, Dr Negron. (10-25-17 at 3:40) Met with patient to give her resources for A and D treatment and her appointment with her family . Patient to be discharged today. CM available if any issues arise before d/c. Date Signed: 10/19/2017 11:25 AM Electronically Signed By:Rylee Saavedra LCSW
[2017-10-19] MEDS: INSULIN GLARGINE 100 UNITS/ML SYRINGE SC SCH (12:45)
[2017-10-19 15:01] LABS: HEMOGLOBIN A1C 11.8 % (4.0-6.0)
== END 2017-10-19 13:50 | disposition home or self-care (01) | DRG 639 ==
LOC: EEVIPCON 18:31 → F2N 20:30 → OBSVTOIN 10-18 16:45
PROVIDERS: ADMIT Internal Medicine; ATTEND Internal Medicine
DX: E10.10 Type 1 diabetes mellitus with ketoacidosis without coma (principal); Z79.4 Long term (current) use of insulin; Z91.14 Patient's other noncompliance with medication regimen
CPT/HCPCS: 80307; 82947-QW; 96374; G0378; G0480; J1200; J1815; J1885; J2060; J2405; J2550; J3475

== ENCOUNTER 2017-12-20 11:36 | Emergency (ER) | payer OTHER ==
--- NOTE | 2017-12-20 11:41 | EDPHY ---
H & P Time Seen by Provider: 12/20/17 11:40 HPI/ROS: HPI: This is a 22-year-old female who presents with Chief Complaint: Anxiety, chest pain Location: Body Quality: Anxiety Duration: Since this morning Signs and Symptoms: No fever, no cough, no chills, no shortness of breath, no abdominal pain, no nausea, no vomiting, no lethargy Timing: Acute on chronic Severity:mild to moderate Context: Patient has a history of pancreatitis, insulin-dependent diabetes mellitus diagnosed at age 2, hair when and methamphetamine use/abuse presents with feeling extremely anxious and "not feeling well" for the last 1 hr. Patient arrived to the emergency room via EMS. Her last use of IV and inhalation methamphetamine was around midnight last night. Patient reports that she has been admitted to the hospital monthly for the last 3 months for DKA. She did take Humalog 16 U this morning but did not take her Lantus yesterday evening for unknown reason. Patient reports that she carb counts. She originally felt short of breath but now believes that was related to her anxiety. Denies any fever/chills/lower extremity edema/chest pain/shortness of breath. Patient is extremely anxious and jittery during the interview. She asked the nurse for IV Dilaudid 2 times for different complaints. Patient denies any pain to me. She has not eaten or drank anything today. Patient denies any nausea/vomiting/fevers/diarrhea/shortness of breath. Modifying Factors: Humalog 16 U this morning Comment: ROS: see HPI Constitutional: No fever, no chills, no weight loss Eyes: No blurred vision Respiratory: No shortness of breath, no cough Cardiovascular: No chest pain Gastrointestinal: No nausea, no vomiting, no diarrhea Genitourinary: No dysuria Extremities: No myalgias Neurologic: No weakness, no numbness Skin: No rashes Hematologic: No bruising, no bleeding MEDICAL/SURGICAL/SOCIAL HISTORY: Medical history: heroin abuse, pancreatitis, IDDM Surgical history: Denies Social history: Unemployed. CONSTITUTIONAL: Nontoxic-appearing young adult white female, awake and alert, no obvious distress HEENT: Atraumatic and normocephalic, PERRL, EOMI. Tympanic membranes clear. Oropharynx clear, no exudate and moist pink mucosa. Airway patent. No lymphadenopathy. No meningismus. Cardiovascular: Normal S1/S2, mild tachycardia, regular rhythm, without murmur rub or gallop. PULMONARY/CHEST: Symmetrical and nontender. Clear to auscultation bilaterally. Good air movement. No accessory muscle usage. ABDOMEN: Soft, nondistended, nontender, no rebound, no guarding, no peritoneal signs, no masses or organomegaly. No CVAT. EXTREMITIES: 2/2 pulses, strength 5/5, no deformities, no clubbing, no cyanosis or edema. NEUROLOGICAL: no focal neuro deficits. GCS 15. SKIN: Warm and dry, multiple rangel on skin; no erythema. no rash. Good capillary refill. Source: Patient Exam Limitations: No limitations - Medical/Surgical History Hx Asthma: No Hx Chronic Respiratory Disease: No Hx Diabetes: Yes Hx Cardiac Disease: No Hx Renal Disease: No Hx Cirrhosis: No Hx Alcoholism: No Hx HIV/AIDS: No Hx Splenectomy or Spleen Trauma: No Other PMH: heroin abuse. pancreatitis. IDDM - Social History Smoking Status: Current every day smoker Constitutional: Initial Vital Signs Temperature (C) 36.9 C 12/20/17 11:47 Heart Rate 105 H 12/20/17 11:47 Respiratory Rate 18 12/20/17 11:47 Blood Pressure 117/72 12/20/17 11:47 O2 Sat (%) 99 12/20/17 11:47 O2 Delivery Mode Room Air Allergies/Adverse Reactions: amoxicillin Allergy (Severe, Verified 10/17/17 21:32) Hives Home Medications: Medication Instructions Recorded Buprenorphine HCl/Naloxone HCl 1 tab SL BID 10/17/17 [Suboxone 8 mg-2 mg Tablet] Gabapentin [Neurontin 100 MG (*)] 100 mg PO TID 10/17/17 Insulin Glargine [Lantus 100 30 - 35 units SC HS 10/17/17 UNITS/ML (*)] Insulin Lispro [humALOG LISPRO 100 0 unit SC TIDMEAL 10/17/17 units/ml (*)] Sertraline HCl [Zoloft 25mg (*)] 25 mg PO HS 10/17/17 hydrOXYzine HCL [Vistaril 50MG 50 mg PO BID PRN 10/17/17 (RX)] traZODone [traZODONE 50MG (*)] 50 - 100 mg PO HS PRN 10/17/17 Medical Decision Making ED Course/Re-evaluation: Fingerstick blood sugar upon arrival was greater than 350. Given 3 L normal saline; 10 U of IV regular insulin Labs, urinalysis ordered to evaluate for DKA. 1245: Labs reviewed; bicarb 17; anion gap 21; potassium 4.5; serum glucose 375 Offer patient admission and she politely refused. Mild DKA noted; decision after talking to attending to hydrate and give insulin in the ER with repeat labs 1420: Repeat labs; bicarb 20; anion gap 13; potassium 3.9; serum glucose 169 Patient does not want to be admitted to the hospital as she [facility]. She has been trying to get this appointment for 3 months. Patient showed improvement in her acidosis with insulin in 3 L normal saline. She has a strong risk for bounce-back due to her noncompliance and drug use. This patient was seen under the supervision of my secondary supervising physician. I evaluated care for this patient independently. Differential Diagnosis: Differential diagnosis includes but is not limited to hyperglycemia, DKA. - Data Points Laboratory Results: Laboratory Results 12/20/17 13:37 12/20/17 13:37 12/20/17 12/20/17 12/20/17 13:37 13:37 12:10 WBC 7.25 10^3/uL 10^3/uL (3.80-9.50) RBC 4.31 10^6/uL 10^6/uL (4.18-5.33) Hgb 12.9 g/dL g/dL (12.6-16.3) Hct 37.9 % L % (38.0-47.0) MCV 87.9 fL fL (81.5-99.8) MCH 29.9 pg pg (27.9-34.1) MCHC 34.0 g/dL g/dL (32.4-36.7) RDW 12.8 % % (11.5-15.2) Plt Count 336 10^3/uL 10^3/uL (150-400) MPV 9.8 fL fL (8.7-11.7) Neut % (Auto) 68.3 % % (39.3-74.2) Lymph % (Auto) 23.0 % % (15.0-45.0) Schuyler % (Auto) 6.3 % % (4.5-13.0) Eos % (Auto) 0.3 % L % (0.6-7.6) Baso % (Auto) 1.1 % % (0.3-1.7) Nucleat RBC Rel Count 0.0 % % (0.0-0.2) Absolute Neuts (auto) 4.95 10^3/uL 10^3/uL (1.70-6.50) Absolute Lymphs (auto) 1.67 10^3/uL 10^3/uL (1.00-3.00) Absolute Monos (auto) 0.46 10^3/uL 10^3/uL (0.30-0.80) Absolute Eos (auto) 0.02 10^3/uL L 10^3/uL (0.03-0.40) Absolute Basos (auto) 0.08 10^3/uL 10^3/uL (0.02-0.10) Absolute Nucleated RBC 0.00 10^3/uL 10^3/uL (0-0.01) Immature Gran % 1.0 % % (0.0-1.1) Immature Gran # 0.07 10^3/uL 10^3/uL (0.00-0.10) Sodium 140 mEq/L mEq/L 140 mEq/L mEq/L (135-145) (135-145) Potassium 3.9 mEq/L mEq/L 4.5 mEq/L mEq/L (3.5-5.2) (3.5-5.2) Chloride 107 mEq/L mEq/L 102 mEq/L mEq/L (97-110) (97-110) Carbon Dioxide 20 mEq/l L mEq/l 17 mEq/l L mEq/l (22-31) (22-31) Anion Gap 13 mEq/L mEq/L 21 mEq/L H mEq/L (8-16) (8-16) BUN 17 mg/dL mg/dL 18 mg/dL mg/dL (7-23) (7-23) Creatinine 0.7 mg/dL mg/dL 0.8 mg/dL mg/dL (0.6-1.0) (0.6-1.0) Estimated GFR > 60 > 60 Glucose 169 mg/dL H D mg/dL 375 mg/dL H mg/dL (70-100) (70-100) POC Glucose Calcium 9.0 mg/dL mg/dL 9.9 mg/dL mg/dL (8.5-10.4) (8.5-10.4) Phosphorus 3.0 mg/dL mg/dL (2.5-4.5) Magnesium 2.0 mg/dL mg/dL (1.6-2.3) Total Bilirubin 1.0 mg/dL mg/dL (0.1-1.4) Conjugated Bilirubin 0.5 mg/dL mg/dL (0.0-0.5) Unconjugated Bilirubin 0.5 mg/dL mg/dL (0.0-1.1) AST 31 IU/L IU/L (14-46) ALT 32 IU/L IU/L (9-52) Alkaline Phosphatase 89 IU/L IU/L (38-126) Total Protein 7.5 g/dL g/dL (6.3-8.2) Albumin 4.3 g/dL g/dL (3.5-5.0) Lipase 31 IU/L IU/L (23-300) Beta-Hydroxybutyrate 3.45 mmol/L H mmol/L (0.02-0.27) 12/20/17 12/20/17 12:10 11:35 WBC REJ RBC REJ Hgb REJ Hct REJ MCV REJ MCH REJ MCHC REJ RDW REJ Plt Count REJ MPV REJ Neut % (Auto) REJ Lymph % (Auto) REJ Schuyler % (Auto) REJ Eos % (Auto) REJ Baso % (Auto) REJ Nucleat RBC Rel Count REJ Absolute Neuts (auto) REJ Absolute Lymphs (auto) REJ Absolute Monos (auto) REJ Absolute Eos (auto) REJ Absolute Basos (auto) REJ Absolute Nucleated RBC REJ Immature Gran % REJ Immature Gran # REJ Sodium Potassium Chloride Carbon Dioxide Anion Gap BUN Creatinine Estimated GFR Glucose POC Glucose > 350 mg/dL H mg/dL (70-100) Calcium Phosphorus Magnesium Total Bilirubin Conjugated Bilirubin Unconjugated Bilirubin AST ALT Alkaline Phosphatase Total Protein Albumin Lipase Beta-Hydroxybutyrate Medications Given: Discontinued Medications Sodium Chloride (Ns) 1,000 mls @ 0 mls/hr IV ONCE ONE; Wide Open PRN Reason: Protocol Stop: 12/20/17 11:49 Last Admin: 12/20/17 12:28 Dose: 1,000 mls Sodium Chloride (Ns) 1,000 mls @ 0 mls/hr IV ONCE ONE; Wide Open PRN Reason: Protocol Stop: 12/20/17 11:49 Last Admin: 12/20/17 13:40 Dose: 1,000 mls Sodium Chloride (Ns) 1,000 mls @ 0 mls/hr IV EDNOW ONE; Wide Open PRN Reason: Protocol Stop: 12/20/17 12:47 Last Admin: 12/20/17 13:40 Dose: 1,000 mls Insulin Human Regular (Humulin R) 10 unit IVP EDNOW ONE Stop: 12/20/17 11:49 Last Admin: 12/20/17 12:29 Dose: 10 unit Point of Care Test Results: 12/20/17 11:35 POC Glucose > 350 H Departure - Departure Disposition: Home, Routine, Self-Care Clinical Impression: Noncompliance with diet and medication regimen Uncontrolled type 1 diabetes mellitus Qualifiers: Diabetes mellitus complication status: with hyperglycemia Qualified Code(s): E10.65 - Type 1 diabetes mellitus with hyperglycemia Condition: Good Instructions: Type 1 Diabetes in Adults (ED), Managing Diabetes During Sick Days (ED) Additional Instructions: Please be compliant with your insulin regimen including your Lantus and Humalog. Please follow your diabetic diet. Stop using heroin and methamphetamine. Consume a minimum of 8-10 glasses of water or electrolyte fluid replacement drinks that include Gatorade, Powerade, Pedialyte. Eat a bland diet for the next 48 hours and then slowly advance as tolerated. Referrals: [facility],. [Clinic] - As per Instructions
[2017-12-20] MEDS ORDERED: INSULIN REGULAR HUMAN 100 UNIT/ML UNIT IVP ONE (11:48)
[2017-12-20] MEDS ORDERED: NS 1,000 ML IV ONE ×3 (11:48→12:46)
[2017-12-20 11:52] VITALS: RESP 18; TEMP 98.4
[2017-12-20 13:51] LABS: PLATELET COUNT 336 10^3/uL (150-400)
[2017-12-20 14:48] VITALS: BP 126/66; PULSE 88; O2SAT 98
== END 2017-12-20 14:48 | disposition home or self-care (01) ==
LOC: EDUNIT#
DX: E10.65 Type 1 diabetes mellitus with hyperglycemia (principal); F17.200 Nicotine dependence, unspecified, uncomplicated; E86.9 Volume depletion, unspecified; Z91.19 Patient's noncompliance with other medical treatment and regimen
CPT/HCPCS: 96374

== ENCOUNTER 2017-12-21 16:31 | Inpatient (IN) | payer OTHER ==
[2017-12-21] MEDS ORDERED: NS 1,000 ML IV ONE ×3 (16:33→16:48)
[2017-12-21] MEDS ORDERED: INSULIN REGULAR HUMAN 100 UNIT/ML UNIT IVP ONE (16:41)
[2017-12-21 16:48] LABS: PLATELET COUNT 403 10^3/uL (150-400)
[2017-12-21] MEDS ORDERED: POTASSIUM Cl (KCl) 100 ML IV ONE (16:48)
[2017-12-21] MEDS ORDERED: INSULIN REGULAR HUMAN 100 UNIT, COSIGN. REQUIRED 1 EA in NS 100 ML IV ONE (16:48)
[2017-12-21] MEDS ORDERED: LORazepam 2 MG/ML INJ IVP ONE (17:14)
[2017-12-21] MEDS ORDERED: LORazepam 2 MG/ML INJ ONE (17:15)
--- NOTE | 2017-12-21 18:22 | EDPHY ---
H & P Time Seen by Provider: 12/21/17 16:33 HPI/ROS: HPI Diabetic ketoacidosis. 22-year-old female, history of heroin abuse and polysubstance abuse. Type 1 diabetic. Presents the emergency department by ambulance complaining of nausea , epigastric pain. Found outside somebody's apartment. Recently admitted for DKA 10/18/2017. She tells me that she has been using her insulin. She has this medication on her. She states that her last use of heroin was yesterday. She is very agitated. Difficult to get a complete history from her. Initial point of care glucose 670. ROS: Constitutional: No fever, no chills. No weakness. Eyes: No discharge. No changes in vision. ENT: No sore throat. No nasal congestion or rhinorrhea. Respiratory: No cough. No shortness of breath. Cardiac: She complains of mid upper chest tightness, no palpitations. Gastrointestinal: As above, no vomiting, no diarrhea. Genitourinary: No hematuria. No dysuria or increased frequency with urination. Musculoskeletal: No back pain. No neck pain. No myalgias or arthralgias. Skin: No rashes. Neurological: No headache. No focal weakness or altered sensation. Past medical history: Type 1 diabetes, pancreatitis, polysubstance abuse, recent heroin use. Social history: Smoker. As above. Currently here by herself. Physical Exam: General Appearance: Alert, agitated. This patient is responding to questions intermittently, short yes or no answers. This patient appears generally well- hydrated and well-nourished. Head: Normocephalic atraumatic. Eyes: Pupils equal and round no pallor or injection. No lid edema, erythema or injection. ENT, Mouth: Mucous membranes are dry. The pharyngeal tissues are unremarkable. No edema or swelling. No asymmetry suggestive of abscess. No erythema or exudates. Respiratory: There are no retractions, lungs are clear to auscultation with good air movement bilaterally. Cardiovascular: Regular rate and rhythm. Tachycardia. No murmur. Gastrointestinal: Abdomen is soft and nontender, no masses, bowel sounds normal. No focal tenderness at McBurney's point. No Maddox sign. Neurological: Motor sensory function is grossly intact. Cranial nerves are normal. Gait is normal. Skin: Warm and dry, no rashes. Track rangel noted on upper extremities. Musculoskeletal: Neck is supple and nontender. Extremities are symmetrical. All joints range without pain or impingement. Psychiatric: No agitation. No depression. Database: EKG: Imaging: Procedures: Emergency department course: IV placed. Vital signs reviewed. Initial potassium 4.8, bicarbonate of 11, glucose in the 600s. She was started on IV normal saline, 2-3 L to be given a initially with DKA protocol. She was given 10 U of IV regular insulin followed by starting of a insulin drip at 7 units/hour. She was given 1 mg of IV Ativan secondary to her agitation. 6:20 p.m., patient re-evaluated. Come after Ativan. Repeat basic metabolic panel ordered. She states that she is now feeling better. 6:25 p.m., spoke with on-call hospitalist, Dr. Elise. He is familiar with this patient. He accepts the patient for admission to the ICU. Repeat basic metabolic panel reviewed. Potassium repletion will be started by the hospitalist service as needed. The patient's acidosis is improving. She was admitted to the ICU in stable condition. Differential Diagnosis: The differential diagnosis on this patient includes but is not limited to diabetic ketoacidosis. Pancreatitis, meningitis, encephalitis, head trauma, unlikely. This represents a partial list of diagnoses considered. These considerations are based on history, physical exam, past history, reassessment and diagnostic testing. Smoking Status: Current every day smoker Constitutional: Initial Vital Signs Temperature (C) 36.4 C 12/21/17 17:10 Heart Rate 118 H 12/21/17 17:10 Respiratory Rate 24 H 12/21/17 17:10 Blood Pressure 108/74 12/21/17 17:10 O2 Sat (%) 100 12/21/17 17:10 O2 Delivery Mode Room Air Allergies/Adverse Reactions: amoxicillin Allergy (Severe, Verified 10/17/17 21:32) Hives Home Medications: Medication Instructions Recorded Buprenorphine HCl/Naloxone HCl 1 tab SL BID 10/17/17 [Suboxone 8 mg-2 mg Tablet] Gabapentin [Neurontin 100 MG (*)] 100 mg PO TID 10/17/17 Insulin Glargine [Lantus 100 30 - 35 units SC HS 10/17/17 UNITS/ML (*)] Insulin Lispro [humALOG LISPRO 100 0 unit SC TIDMEAL 10/17/17 units/ml (*)] Sertraline HCl [Zoloft 25mg (*)] 25 mg PO HS 10/17/17 hydrOXYzine HCL [Vistaril 50MG 50 mg PO BID PRN 10/17/17 (RX)] traZODone [traZODONE 50MG (*)] 50 - 100 mg PO HS PRN 10/17/17 Medical Decision Making Critical Care Time: I spent a total of 45 minutes of critical care time in obtaining history, performing a physical exam, bedside monitoring of interventions, collecting and interpreting tests and discussion with consultants but not including time spent performing procedures. - Data Points Laboratory Results: Laboratory Results 12/21/17 16:30 12/21/17 18:09 Medications Given: Dextrose/Sodium Chloride (D5w Ns) 1,000 mls @ 175 mls/hr IV CONT EL Stop: 06/19/18 21:44 Last Admin: 12/21/17 21:34 Dose: 1,000 mls Discontinued Medications Sodium Chloride (Ns) 1,000 mls @ 0 mls/hr IV ONCE ONE; Wide Open PRN Reason: Protocol Stop: 12/21/17 16:34 Last Admin: 12/21/17 17:07 Dose: 1,000 mls Sodium Chloride (Ns) 1,000 mls @ 0 mls/hr IV ONCE ONE; Wide Open PRN Reason: Protocol Stop: 12/21/17 16:34 Last Admin: 12/21/17 17:17 Dose: 1,000 mls Sodium Chloride (Ns) 1,000 mls @ 0 mls/hr IV ONCE ONE; Wide Open PRN Reason: Protocol Stop: 12/21/17 16:49 Last Admin: 12/21/17 18:15 Dose: 1,000 mls Insulin Human Regular 100 unit / Miscellaneous Medication 1 ea/ Sodium Chloride 101 mls @ 7 mls/hr IV EDNOW ONE PRN Reason: Protocol Stop: 12/22/17 07:13 Last Admin: 12/21/17 18:25 Dose: 101 mls Potassium Chloride (Potassium Cl 10 Meq (Premix)) 100 mls @ 100 mls/hr IV EDNOW ONE Stop: 12/21/17 17:47 Last Admin: 12/21/17 20:38 Dose: Not Given Potassium Chloride 10 meq/ (Dextrose) 100 mls @ 100 mls/hr IV EDNOW ONE Stop: 12/21/17 21:29 Last Admin: 12/21/17 20:36 Dose: 100 mls Potassium Chloride 10 meq/ (Sodium Chloride) 100 mls @ 50 mls/hr IV Q2H EL Stop: 12/22/17 04:00 Last Admin: 12/22/17 06:11 Dose: Not Given Insulin Glargine (Lantus Syringe) 20 units SC ONCE ONE Stop: 12/22/17 05:12 Last Admin: 12/22/17 05:56 Dose: 20 units Insulin Human Regular (Humulin R) 10 unit IVP EDNOW ONE Stop: 12/21/17 16:42 Last Admin: 12/21/17 17:07 Dose: 10 units Lorazepam (Ativan Injection) 1 mg IVP EDNOW ONE Stop: 12/21/17 17:15 Last Admin: 12/21/17 17:17 Dose: 1 mg Departure - Departure Disposition: [facility] Acute Clinical Impression: DKA (diabetic ketoacidoses)
[2017-12-21] MEDS ORDERED: POTASSIUM Cl (KCl) 10 MEQ in D5W 100 ML IV ONE (20:30)
[2017-12-21] MEDS ORDERED: D5W NS 1,000 ML IV SCH (21:45)
[2017-12-21] MEDS ORDERED: D5W 1,000 ML IV SCH (22:02)
[2017-12-21] MEDS ORDERED: INSULIN REGULAR HUMAN 100 UNIT in NS 100 ML IV SCH (22:02)
[2017-12-21] MEDS ORDERED: INSULIN REGULAR HUMAN 100 UNIT/ML UNIT SC PRN (22:02)
[2017-12-21] MEDS ORDERED: D50W 25 GM/50 ML SYR IVP PRN (22:02)
[2017-12-21] MEDS ORDERED: ONDANSETRON 4 MG/2 ML VIAL IVP PRN (22:04)
[2017-12-21] MEDS ORDERED: LORazepam 2 MG/ML INJ IVP PRN (22:04)
[2017-12-21] MEDS ORDERED: ONDANSETRON DISINTEGRATING 4 MG TAB PO PRN (22:04)
[2017-12-21] MEDS ORDERED: PROTOCOL MAGNESIUM 1 DOSE IV PRN (22:11)
[2017-12-21] MEDS ORDERED: PROTOCOL POTASSIUM 1 DOSE MISC PRN (22:11)
--- NOTE | 2017-12-21 22:12 | PDGENHP ---
History and Physical - Chief Complaint Nausea, Epigastric Pain - History of Present Illness The pt is a 22 yo female with hx of heroin abuse and DMI who presented to the ED with DKA. She was recently given Ativan for agitation and she is confused and not answering questions. History is obtained from the medical record. ShepPresents the emergency department by ambulance complaining of nausea, epigastric pain. Found outside somebody's apartment. She states that her last use of heroin was yesterday. She is very agitated. Difficult to get a complete history from her. ROS: unable to obtain Past medical history: Type 1 diabetes, pancreatitis, polysubstance abuse, recent heroin use, hx of cocaine use PSHx: none Social history: Smoker, heroin use FmHx: nc Labs/data reviewed History Information - Allergies/Home Medication List Allergies/Adverse Reactions: amoxicillin Allergy (Severe, Verified 10/17/17 21:32) Hives Home Medications: Buprenorphine HCl/Naloxone HCl [Suboxone 8 mg-2 mg Tablet] 1 tab SL BID [Last Taken 09/17/17] Gabapentin [Neurontin 100 MG (*)] 100 mg PO TID 10/17/17 [Last Taken 10/12/17] Insulin Glargine [Lantus 100 UNITS/ML (*)] 30 - 35 units SC HS 10/17/17 [Last Taken 10/15/17] Insulin Lispro [humALOG LISPRO 100 units/ml (*)] 0 unit SC TIDMEAL 10/17/17 [ Last Taken Unknown] Sertraline HCl [Zoloft 25mg (*)] 25 mg PO HS 10/17/17 [Last Taken 10/16/17] hydrOXYzine HCL [Vistaril 50MG (RX)] 50 mg PO BID PRN 10/17/17 [Last Taken 10/15] traZODone [traZODONE 50MG (*)] 50 - 100 mg PO HS PRN 10/17/17 [Last Taken ] I have personally reviewed and updated: medical history, social history - Social History Smoking Status: Current every day smoker Review of Systems Review of Systems: ROS: 10pt was reviewed & negative except for what was stated in HPI & below Physical Exam Physical Exam: Temp Pulse Resp BP Pulse Ox 36.7 C 107 H 20 111/77 99 02/07/18 21:31 12/21/17 21:31 12/21/17 21:31 12/21/17 21:31 12/21/17 21:31 Constitutional: no apparent distress Eyes: PERRL, EOMI Ears, Nose, Mouth, Throat: dry mucous membranes Cardiovascular: regular rate and rhythym, No JVD, No edema Respiratory: no respiratory distress Gastrointestinal: normoactive bowel sounds, soft, non-tender abdomen, No rebound , No distension Genitourinary: no bladder fullness Skin: warm Neurologic: No AAOx3 Psychiatric: encephalopathic, No interacting appropriately Lymph, Heme, Immunologic: No petechiae Lab Data & Imaging Review 12/21/17 16:30 12/21/17 18:09 WBC 11.98 10^3/uL (3.80-9.50) H 12/21/17 16:30 RBC 4.41 10^6/uL (4.18-5.33) 12/21/17 16:30 Hgb 13.3 g/dL (12.6-16.3) 12/21/17 16:30 POC Hgb 14.3 gm/dL (12.6-16.3) 12/21/17 16:29 Hct 40.1 % (38.0-47.0) 12/21/17 16:30 POC Hct 42 % (38-47) 12/21/17 16:29 MCV 90.9 fL (81.5-99.8) 12/21/17 16:30 MCH 30.2 pg (27.9-34.1) 12/21/17 16:30 MCHC 33.2 g/dL (32.4-36.7) 12/21/17 16:30 RDW 12.3 % (11.5-15.2) 12/21/17 16:30 Plt Count 403 10^3/uL (150-400) H D 12/21/17 16:30 MPV 10.4 fL (8.7-11.7) 12/21/17 16:30 Neut % (Auto) 70.9 % (39.3-74.2) 12/21/17 16:30 Lymph % (Auto) 17.9 % (15.0-45.0) 12/21/17 16:30 [place] % (Auto) 8.4 % (4.5-13.0) 12/21/17 16:30 Eos % (Auto) 1.1 % (0.6-7.6) 12/21/17 16:30 Baso % (Auto) 1.0 % (0.3-1.7) 12/21/17 16:30 Nucleat RBC Rel Count 0.0 % (0.0-0.2) 12/21/17 16:30 Absolute Neuts (auto) 8.50 10^3/uL (1.70-6.50) H 12/21/17 16:30 Absolute Lymphs (auto) 2.14 10^3/uL (1.00-3.00) 12/21/17 16:30 Absolute Monos (auto) 1.01 10^3/uL (0.30-0.80) H 12/21/17 16:30 Absolute Eos (auto) 0.13 10^3/uL (0.03-0.40) 12/21/17 16:30 Absolute Basos (auto) 0.12 10^3/uL (0.02-0.10) H 12/21/17 16:30 Absolute Nucleated RBC 0.00 10^3/uL (0-0.01) 12/21/17 16:30 Immature Gran % 0.7 % (0.0-1.1) 12/21/17 16:30 Immature Gran # 0.08 10^3/uL (0.00-0.10) 12/21/17 16:30 POC Sodium 131 mEq/L (135-145) L 12/21/17 16:29 Sodium 134 mEq/L (135-145) L 12/21/17 18:09 POC Potassium 4.4 mEq/L (3.3-5.0) 12/21/17 16:29 Potassium 4.1 mEq/L (3.5-5.2) 12/21/17 18:09 POC Chloride 98 mEq/L (97-110) 12/21/17 16:29 Chloride 103 mEq/L (97-110) D 12/21/17 18:09 Carbon Dioxide 15 mEq/l (22-31) L 12/21/17 18:09 Anion Gap 16 mEq/L (8-16) 12/21/17 18:09 POC BUN 15 mg/dL (7-23) 12/21/17 16:29 BUN 14 mg/dL (7-23) 12/21/17 18:09 Creatinine 0.7 mg/dL (0.6-1.0) 12/21/17 18:09 POC Creatinine 0.7 mg/dL (0.6-1.0) 12/21/17 16:29 Estimated GFR > 60 12/21/17 18:09 Glucose 403 mg/dL (70-100) H 12/21/17 18:09 POC Glucose 248 mg/dL (70-100) H 12/21/17 20:56 Calcium 8.0 mg/dL (8.5-10.4) L D 12/21/17 18:09 Phosphorus 4.4 mg/dL (2.5-4.5) D 12/21/17 16:30 Magnesium 1.9 mg/dL (1.6-2.3) 12/21/17 16:30 Total Bilirubin 0.6 mg/dL (0.1-1.4) 12/21/17 18:09 Conjugated Bilirubin 0.4 mg/dL (0.0-0.5) 12/21/17 18:09 Unconjugated Bilirubin 0.2 mg/dL (0.0-1.1) 12/21/17 18:09 AST 18 IU/L (14-46) 12/21/17 18:09 ALT 30 IU/L (9-52) 12/21/17 18:09 Alkaline Phosphatase 86 IU/L (38-126) 12/21/17 18:09 Total Protein 5.8 g/dL (6.3-8.2) L D 12/21/17 18:09 Albumin 3.1 g/dL (3.5-5.0) L 12/21/17 18:09 Lipase 20 IU/L (23-300) L 12/21/17 18:09 Beta-Hydroxybutyrate 7.71 mmol/L (0.02-0.27) H 12/21/17 16:30 Beta HCG, Qual NEGATIVE 12/21/17 18:09 Specimen Hemolysis Cancelled 12/21/17 16:30 Urine Color PALE YELLOW 12/21/17 16:42 Urine Appearance HAZY 12/21/17 16:42 Urine pH 5.0 (5.0-7.5) 12/21/17 16:42 Ur Specific [place] 1.023 (1.002-1.030) 12/21/17 16:42 Urine Protein NEGATIVE (NEGATIVE) 12/21/17 16:42 Urine Ketones 2+ (NEGATIVE) H 12/21/17 16:42 Urine Blood NEGATIVE (NEGATIVE) 12/21/17 16:42 Urine Nitrate NEGATIVE (NEGATIVE) 12/21/17 16:42 Urine Bilirubin NEGATIVE (NEGATIVE) 12/21/17 16:42 Urine Urobilinogen NEGATIVE EU (0.2-1.0) 12/21/17 16:42 Ur Leukocyte Esterase NEGATIVE (NEGATIVE) 12/21/17 16:42 Urine RBC 1-3 /hpf (0-3) 12/21/17 16:42 Urine WBC 1-3 /hpf (0-3) 12/21/17 16:42 Ur Epithelial Cells 1+ /lpf (NONE-1+) 12/21/17 16:42 Urine Mucus TRACE /lpf (NONE-1+) 12/21/17 16:42 Urine Glucose 3+ (NEGATIVE) H 12/21/17 16:42 Assessment & Plan Assessment: #DKA #Profound Dehydration #Heroin use #Metabolic anion gap acidosis #polysubstance abuse #leukocytosis, doubt infection Plan: ICU DKA protocol more IVF replace electrolytes Ativan as needed Check drug screen SCD's Full code total critical care time is 50 minutes spent on this pt with DKA and active critical issues per above
[2017-12-22] MEDS: POTASSIUM Cl (KCl) 10 MEQ in NS 100 ML IV SCH ×3 (03:05→06:11)
[2017-12-22 04:17] LABS: PLATELET COUNT 294 10^3/uL (150-400)
[2017-12-22] MEDS ORDERED: INSULIN GLARGINE 100 UNITS/ML UNIT SC ONE (05:11)
[2017-12-22] MEDS ORDERED: MAGNESIUM SULF 1 GM/DEXTROSE 100 ML IV ONE (09:35)
[2017-12-22] MEDS: INSULIN LISPRO 100 UNIT/ML SC SCH ×2 (09:42→12:05)
[2017-12-22] MEDS ORDERED: POTASSIUM Cl (KCl) 50 ML IV ONE ×2 (10:00)
--- NOTE | 2017-12-22 10:33 | PDMN ---
Medical Necessity Medical necessity: M130 Diabetes: DKA - glucose >600, ( 670), dehydration, Metabolic anion gap acidosis, polysubstance abuse, recent heroin use ( yesterday ), agitated, leukocytosis,
[2017-12-22] MEDS: POTASSIUM Cl (KCl) 100 ML IV SCH (10:54)
[2017-12-22 12:09] VITALS: BP 122/88; PULSE 95; RESP 22; TEMP 97.8; O2SAT 99
--- NOTE | 2017-12-22 19:33 | GDS ---
[f rep st] DISCHARGE SUMMARY DISCHARGE DIAGNOSES: 1. Mild diabetic ketoacidosis. 2. Intravenous heroin and intravenous methamphetamine abuse. 3. Toxic encephalopathy. HISTORY OF PRESENT ILLNESS: The patient is a 22-year-old female with a history of intravenous drug a buse and type 1 diabetes, who presented to the emergency department after being found confused. She had extremely mild DKA, which resolved rapidly and she was put back on her usual Lantus dose. Her he moglobin A1c is 10, so she is poorly controlled at baseline. She was counseled regarding improved co mpliance with followup. She remained somnolent for a prolonged period of time and once she did return to a normal mental stat us did admit to intravenous heroin use multiple times in the last 48 hours, which is likely the real reason for her altered mental status on presentation. Her mental status returned to baseline. She w as counseled regarding her drug use. She seemed despondent regarding her addiction, stating that she hates being an addict, but she just cannot stop. She was given counseling resources prior to discha rge. DISCHARGE MEDICATIONS: Please see computerized record for a full detailed list. ADDITIONAL DISCHARGE INSTRUCTIONS: 1. Close outpatient followup for diabetes management, given poor control of hemoglobin A1c greater t baires 10. 2. Patient advised regarding the risks of her drug abuse. The patient was seen and examined by me on day of discharge. Greater than 30 minutes' time was spent arranging this discharge. /[id number]/MODL
== END 2017-12-22 15:17 | disposition home or self-care (01) | DRG 637 ==
LOC: EDUNIT# → F2N 21:35
PROVIDERS: ADMIT Student in an Organized Health Care Education/Training Program; ATTEND Internal Medicine
DX: E10.10 Type 1 diabetes mellitus with ketoacidosis without coma (principal); G92 Toxic encephalopathy; T40.1X1A Poisoning by heroin, accidental (unintentional), initial encounter; F11.10 Opioid abuse, uncomplicated; F15.10 Other stimulant abuse, uncomplicated; F17.210 Nicotine dependence, cigarettes, uncomplicated; E86.0 Dehydration; D72.829 Elevated white blood cell count, unspecified
CPT/HCPCS: 80307; 82947-QW; 96365; 96366; G0480; J1815; J2060; J3475; J3480

== ENCOUNTER 2017-12-28 13:23 | Emergency (ER) | payer OTHER ==
--- NOTE | 2017-12-28 13:17 | EDPHY ---
H & P HPI/ROS: CHIEF COMPLAINT: Seizure HISTORY OF PRESENT ILLNESS: This patient is a 22 year old female with history of type I diabetes mellitus and IV drug abuse arriving via EMS after a seizure. EMS discovered her unresponsive and seizing; initial BGL on scene was 20. After administering D50, the patient became responsive and is now conversant but tearful. She admits to daily heroin use including today and occasional methamphetamine abuse. She does not remember if she has eaten anything today, but states she did take her Lantus yesterday evening. She made suicidal comments to her boyfriend today, so police placed her on an M1 hold. She is not sure whether she felt suicidal prior to the drug use today. Denies SI now. She denies taking any other drugs or alcohol use. No recent illness, cough, cold, or fever. REVIEW OF SYSTEMS: A 10 point review of systems was performed and is negative with the exception of the elements mentioned in the history of present illness. Past Medical/Surgical History: IDDM Social History: lives in an apartment in [place] Physical Exam: General Appearance: Alert, disheveled, anxious Eyes: Pupils equal and round, no conjunctival pallor or injection ENT, Mouth: Multiple pock rangel on face, mucous membranes moist Neck: Normal inspection Respiratory: Lungs are clear to auscultation Cardiovascular: Regular rate and rhythm Gastrointestinal: Abdomen is soft and non-tender Neurological: A&O, nonfocal exam Skin: Warm and dry Extremities: Normal inspection Psychiatric: Fluctuating affect Constitutional: Initial Vital Signs Temperature (C) 36.6 C 12/28/17 13:35 Heart Rate 80 12/28/17 13:35 Respiratory Rate 18 12/28/17 13:35 Blood Pressure 133/90 H 12/28/17 13:35 O2 Sat (%) 99 12/28/17 13:35 O2 Delivery Mode Room Air Allergies/Adverse Reactions: amoxicillin Allergy (Severe, Verified 10/17/17 21:32) Hives Home Medications: Medication Instructions Recorded Gabapentin [Neurontin 100 MG (*)] 100 mg PO TID 10/17/17 Insulin Glargine [Lantus 100 30 - 35 units SC HS 10/17/17 UNITS/ML (*)] Insulin Lispro [humALOG LISPRO 100 0 unit SC TIDMEAL 10/17/17 units/ml (*)] Sertraline HCl [Zoloft 25mg (*)] 25 mg PO HS 10/17/17 traZODone [traZODONE 50MG (*)] 50 - 100 mg PO HS PRN 10/17/17 Buprenorphine HCl/Naloxone HCl 1 each SL DAILY 12/28/17 [Suboxone 4 mg-1 mg Sl Film] Medical Decision Making ED Course/Re-evaluation: 22 y/o female with history of type I DM and IV drug abuse presents on an M1 hold following a seizure. Patient was initially hypoglycemic and received D50 in transport and is now appropriately responsive though emotionally distraught. Plan for labs including CBC, BMP. The patient states she feels able to eat, so plan to provide a diabetic diet for the patient and continue to monitor her. h/ o prior sz related to hypoglycemia. 14:05 Nurse alerted me this patient has been placed on an M1 hold by police after having expressed suicidal ideation to her boyfriend and stating she is not sure if she may have intentionally overdosed on heroin earlier today. 1800: Repeat blood sugar is adequate. The patient received a diabetic dinner and will receive Lantus 30u SQ after dinner. Urine toxicology screen is positive for methamphetamines. d/w pt, denies SI 1900: I had a prolonged discussion with the patient. She is continuing to denies suicidal ideation. She is trying to overcome her recent relapse with drug addiction, and has a clear plan to deal with the drug addiction. I feel that she is safe and stable for discharge. I do not feel that she is suicidal. She has never expressed suicidal ideation to me or to the ED staff. 72 hr mental health hold lifted by me. Differential Diagnosis: Differential diagnosis includes though it is not limited to status epilepticus, hypoglycemia, intracranial hemorrhage, CVA, benzodiazepine withdrawal, alcohol withdrawal, epilepsy. - Data Points Laboratory Results: Laboratory Results 12/28/17 13:48 12/28/17 18:21 12/28/17 12/28/17 12/28/17 18:21 16:25 15:25 WBC RBC Hgb Hct MCV MCH MCHC RDW Plt Count MPV Neut % (Auto) Lymph % (Auto) [place] % (Auto) Eos % (Auto) Baso % (Auto) Nucleat RBC Rel Count Absolute Neuts (auto) Absolute Lymphs (auto) Absolute Monos (auto) Absolute Eos (auto) Absolute Basos (auto) Absolute Nucleated RBC Immature Gran % Immature Gran # Sodium Potassium Chloride Carbon Dioxide Anion Gap BUN Creatinine Estimated GFR Glucose 358 mg/dL H mg/dL (70-100) POC Glucose > 350 mg/dL H mg/dL (70-100) Calcium Beta HCG, Qual Urine Opiates Screen Urine Barbiturates Ur Phencyclidine Scrn Ur Amphetamine Screen U Benzodiazepines Scrn Urine Cocaine Screen U Marijuana (THC) Screen Ethyl Alcohol < 10 mg/dL mg/dL (0-10) 12/28/17 12/28/17 12/28/17 15:25 14:50 13:48 WBC RBC Hgb Hct MCV MCH MCHC RDW Plt Count MPV Neut % (Auto) Lymph % (Auto) [place] % (Auto) Eos % (Auto) Baso % (Auto) Nucleat RBC Rel Count Absolute Neuts (auto) Absolute Lymphs (auto) Absolute Monos (auto) Absolute Eos (auto) Absolute Basos (auto) Absolute Nucleated RBC Immature Gran % Immature Gran # Sodium 140 mEq/L mEq/L (135-145) Potassium 3.8 mEq/L mEq/L (3.5-5.2) Chloride 102 mEq/L mEq/L (97-110) Carbon Dioxide 23 mEq/l mEq/l (22-31) Anion Gap 15 mEq/L mEq/L (8-16) BUN 13 mg/dL mg/dL (7-23) Creatinine 0.6 mg/dL mg/dL (0.6-1.0) Estimated GFR > 60 Glucose 126 mg/dL H mg/dL (70-100) POC Glucose Calcium 9.2 mg/dL mg/dL (8.5-10.4) Beta HCG, Qual NEGATIVE Urine Opiates Screen NON-NEGATIVE H (NEGATIVE) Urine Barbiturates NEGATIVE (NEGATIVE) Ur Phencyclidine Scrn NEGATIVE (NEGATIVE) Ur Amphetamine Screen NON-NEGATIVE H (NEGATIVE) U Benzodiazepines Scrn NEGATIVE (NEGATIVE) Urine Cocaine Screen NON-NEGATIVE H (NEGATIVE) U Marijuana (THC) Screen NEGATIVE (NEGATIVE) Ethyl Alcohol 12/28/17 13:48 WBC 7.73 10^3/uL 10^3/uL (3.80-9.50) RBC 4.69 10^6/uL 10^6/uL (4.18-5.33) Hgb 13.9 g/dL g/dL (12.6-16.3) Hct 41.7 % % (38.0-47.0) MCV 88.9 fL fL (81.5-99.8) MCH 29.6 pg pg (27.9-34.1) MCHC 33.3 g/dL g/dL (32.4-36.7) RDW 12.5 % % (11.5-15.2) Plt Count 372 10^3/uL 10^3/uL (150-400) MPV 9.7 fL fL (8.7-11.7) Neut % (Auto) 56.8 % % (39.3-74.2) Lymph % (Auto) 34.7 % % (15.0-45.0) [place] % (Auto) 6.5 % % (4.5-13.0) Eos % (Auto) 0.9 % % (0.6-7.6) Baso % (Auto) 0.8 % % (0.3-1.7) Nucleat RBC Rel Count 0.0 % % (0.0-0.2) Absolute Neuts (auto) 4.40 10^3/uL 10^3/uL (1.70-6.50) Absolute Lymphs (auto) 2.68 10^3/uL 10^3/uL (1.00-3.00) Absolute Monos (auto) 0.50 10^3/uL 10^3/uL (0.30-0.80) Absolute Eos (auto) 0.07 10^3/uL 10^3/uL (0.03-0.40) Absolute Basos (auto) 0.06 10^3/uL 10^3/uL (0.02-0.10) Absolute Nucleated RBC 0.00 10^3/uL 10^3/uL (0-0.01) Immature Gran % 0.3 % % (0.0-1.1) Immature Gran # 0.02 10^3/uL 10^3/uL (0.00-0.10) Sodium Potassium Chloride Carbon Dioxide Anion Gap BUN Creatinine Estimated GFR Glucose POC Glucose Calcium Beta HCG, Qual Urine Opiates Screen Urine Barbiturates Ur Phencyclidine Scrn Ur Amphetamine Screen U Benzodiazepines Scrn Urine Cocaine Screen U Marijuana (THC) Screen Ethyl Alcohol Medications Given: Insulin Glargine (Lantus Syringe) 30 units SC EDNOW ONE Stop: 12/28/17 21:01 Last Admin: 12/28/17 20:28 Dose: 30 units Discontinued Medications Ondansetron HCl (Zofran Odt) 4 mg PO EDNOW ONE Stop: 12/28/17 19:41 Last Admin: 12/28/17 19:40 Dose: 4 mg Point of Care Test Results: 12/28/17 16:25 POC Glucose > 350 H Departure - Departure Disposition: Home, Routine, Self-Care Clinical Impression: Polysubstance abuse, Hypoglycemia associated with diabetes, Suicidal ideation Condition: Fair Instructions: Suicide Prevention for Adults (ED), Polysubstance Abuse (ED) Additional Instructions: Please seek care for your drug addiction. If you are feeling like harming yourself, please seek care at the crisis center or return to the ED. Referrals: Luciana Martinez MD [[facility] [place] Primary Care Provider] - As per Instructions [facility] [Outside] - As per Instructions Report Scribed for: Suly Rey Report Scribed by: Celeste Lam Date of Report: 12/28/17 Time of Report: 13:17 Physician Review and Approval Statement: 12/28/17 13:17 Portions of this note were transcribed by a medical laboratory technical officer. I personally performed a history, physical exam, medical decision making, and confirmed accuracy of information the transcribed note.
[2017-12-28 14:02] LABS: PLATELET COUNT 372 10^3/uL (150-400)
[2017-12-28 17:58] VITALS: O2SAT 96
[2017-12-28 18:09] VITALS: RESP 16
[2017-12-28] MEDS ORDERED: ONDANSETRON DISINTEGRATING 4 MG TAB ONE (19:39)
[2017-12-28] MEDS ORDERED: ONDANSETRON DISINTEGRATING 4 MG TAB PO ONE (19:40)
[2017-12-28 20:54] VITALS: BP 101/77; PULSE 70; TEMP 98.2
[2017-12-28] MEDS ORDERED: INSULIN GLARGINE 100 UNITS/ML UNIT SC ONE (21:00)
== END 2017-12-28 21:14 | disposition home or self-care (01) ==
LOC: EDUNIT#
DX: E10.649 Type 1 diabetes mellitus with hypoglycemia without coma (principal); R45.851 Suicidal ideations; F19.10 Other psychoactive substance abuse, uncomplicated
CPT/HCPCS: 80305; 82947-QW; G0480; J1815